=== PATIENT | male | born 1960 | race African-American/Black ===

== ENCOUNTER 2017-06-04 02:15 | Emergency (ER) | payer MEDICARE, MEDICAID ==
[2017-06-04 02:27] VITALS: BP 129/76
--- NOTE | 2017-06-04 02:54 | RADIOLOGY REPORT (SQ) ---
EXAM DESCRIPTION: RIBS LEFT W/PA CHEST COMPLETED DATE/TIME: 06/04/2017 2:41 am REASON FOR STUDY: fall with injury COMPARISON: Chest CT 2012 TECHNIQUE: Frontal view of the chest and additional views of the left ribs acquired. NUMBER OF VIEWS: Three view. LIMITATIONS: None. FINDINGS: FRONTAL CXR: No pneumothorax. No pleural effusion. No atelectasis or infiltrates. RIBS: Multiple old left rib fractures. Old left clavicle and scapular fractures. OTHER: No other significant finding. IMPRESSION: No pneumothorax. No acute fractures. Old posttraumatic changes of the left chest. COMMENT: SITE OF TRAUMA/COMPLAINT MARKED/STAMP COMPLETED: No TECHNICAL DOCUMENTATION: JOB ID: [id number] [employer]- All Rights Reserved
[2017-06-04] MEDS ORDERED: OXYCODONE-ACETAMINOPHEN 5-325 MG TABLET PO ONE (03:55)
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
== END 2017-06-04 04:21 | disposition home or self-care (01) ==
LOC: ER 02:15
DX: S29.9XXA Unspecified injury of thorax, initial encounter (principal); R07.81 Pleurodynia; W17.89XA Other fall from one level to another, initial encounter; F17.200 Nicotine dependence, unspecified, uncomplicated; I10 Essential (primary) hypertension
CPT/HCPCS: 99283; 71101; A9270

== ENCOUNTER 2019-07-07 07:41 | Emergency (ER) | payer MEDICARE, MEDICAID ==
[2019-07-07] MEDS ORDERED: OXYCODONE HCL IR 5 MG TABLET PO ONE (08:42)
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
--- NOTE | 2019-07-07 10:35 | RADIOLOGY REPORT (SQ) ---
EXAM DESCRIPTION: FEMUR LEFT COMPLETED DATE/TIME: 07/07/2019 10:13 am REASON FOR STUDY: left leg pain COMPARISON: CT pelvis same date NUMBER OF VIEWS: Two views. TECHNIQUE: Two radiographic images acquired of the left femur to include hip and knee in at least on e projection. LIMITATIONS: None. FINDINGS: MINERALIZATION: Normal. BONES: No acute fracture. No worrisome bone lesions. SOFT TISSUES: No obvious swelling or foreign body. OTHER: There is osteoarthritis at the left hip joint with edges [id number] appearance, subcortical cyst formation in the left acetabular roof. Moderate heterotopic ossification along the gluteal tend on attachments to the greater trochanter. Benign-appearing soft tissue calcification along the left mid thigh, possibly an old calcified lymph node IMPRESSION: No acute fracture. Left hip osteoarthritis TECHNICAL DOCUMENTATION: JOB ID: [id number] [employer]- All Rights Reserved Reading location - IP/workstation name: [email or web address]
--- NOTE | 2019-07-07 10:37 | RADIOLOGY REPORT (SQ) ---
EXAM DESCRIPTION: SHOULDER RIGHT 2 OR MORE VIEWS COMPLETED DATE/TIME: 07/07/2019 10:13 am REASON FOR STUDY: rt shoulder pain COMPARISON: CT chest 12/15/2012 NUMBER OF VIEWS: Three views. TECHNIQUE: Internal rotation, external rotation, and Y view images acquired of the right shoulder. LIMITATIONS: None. FINDINGS: MINERALIZATION: Normal. BONES: No acute fracture. No worrisome bone lesions. JOINTS: No glenohumeral dislocation. No acromioclavicular joint widening. There is bony spurring al claude the coracoclavicular articulation, with a pseudoarthrosis, similar compared to CT chest 3. VISUALIZED LUNGS AND RIBS: No pneumothorax. No rib fracture. SOFT TISSUES: No radiopaque foreign body. OTHER: No other significant finding. IMPRESSION: NO RADIOGRAPHIC EVIDENCE OF ACUTE INJURY. TECHNICAL DOCUMENTATION: JOB ID: [id number] [employer]- All Rights Reserved Reading location - IP/workstation name: [email or web address]
[2019-07-07 11:38] VITALS: BP 139/89
== END 2019-07-07 11:31 | disposition home or self-care (01) ==
LOC: ER 07:41
DX: M25.511 Pain in right shoulder (principal); M25.552 Pain in left hip; G89.29 Other chronic pain; M54.2 Cervicalgia; Y04.2XXA Assault by strike against or bumped into by another person, initial encounter; E78.00 Pure hypercholesterolemia, unspecified; I10 Essential (primary) hypertension
CPT/HCPCS: 73552; 73030; 72125; 72192; A9270; 99284

== ENCOUNTER 2019-10-01 02:55 | Emergency (ER) | payer MEDICARE, MEDICAID ==
[2019-10-01 04:46] LABS: ABSOLUTE EOSINOPHILS # (AUTO) 0.1 10^3/uL (0.0-0.6); ABSOLUTE LYMPHOCYTES (AUTO) 3.7 10^3/uL (0.5-4.7); ABSOLUTE MONOCYTES (AUTO) 0.7 10^3/uL (0.1-1.4); ABSOLUTE NEUT (AUTO) 2.4 10^3/uL (1.7-8.2); BASOPHILS % (AUTO) 0.1 % (0-2); EOSINOPHILS % (AUTO) 1.5 % (0-6); HEMATOCRIT 43.1 % (37.9-51.0); HEMOGLOBIN 15.1 g/dL (13.5-17.0); LYMPHOCYTES % (AUTO) 53.6 % (13-45); MEAN CORPUSCULAR HEMOGLOBIN 30.1 pg (27.0-33.4); MEAN CORPUSCULAR HGB CONC 35.2 g/dL (32.0-36.0); MEAN CORPUSCULAR VOLUME 86 fl (80-97); MONOCYTES % (AUTO) 10.2 % (3-13); PLATELET COUNT 201 10^3/uL (150-450); RED BLOOD COUNT 5.02 10^6/uL (4.35-5.55); RED CELL DISTRIBUTION WIDTH 13.7 % (11.5-14.0); SEGMENTED NEUTROPHILS % (AUTO) 34.6 % (42-78); TOTAL CELLS COUNTED % (AUTO) 100 %; WHITE BLOOD COUNT 6.9 10^3/uL (4.0-10.5)
[2019-10-01 05:16] LABS: ALKALINE PHOSPHATASE 79 U/L (38-126); ANION GAP 6 (5-19); ASPARTATE AMINO TRANSFERASE 35 U/L (17-59); BILIRUBIN,DIRECT 0.1 mg/dL (0.0-0.4); BILIRUBIN,TOTAL 0.6 mg/dL (0.2-1.3); BLOOD UREA NITROGEN 22 mg/dL (7-20); CALCIUM 9.4 mg/dL (8.4-10.2); CARBON DIOXIDE 31 mmol/L (22-30); CHLORIDE 103 mmol/L (98-107); CREATINE KINASE 113 U/L (55-170); GLUCOSE 105 mg/dL (75-110); POTASSIUM 3.5 mmol/L (3.6-5.0); TOTAL PROTEIN 7.1 g/dL (6.3-8.2)
[2019-10-01 05:28] LABS: CREATINE KINASE MB 0.99 ng/mL (<4.55)
[2019-10-01 05:29] LABS: TROPONIN I < 0.012 ng/mL
--- NOTE | 2019-10-01 06:03 | RADIOLOGY REPORT (SQ) ---
EXAM: XR Chest, 2 Views EXAM DATE/TIME: 10/01/2019 5:15 AM CLINICAL HISTORY: The patient is 59 years old and is Male; chest pain TECHNIQUE: Frontal and lateral views of the chest. COMPARISON: chest radiographs from 09/17/2015 FINDINGS: LUNGS: Unremarkable. No consolidation. PLEURAL SPACE: Unremarkable. No pneumothorax. HEART: No significant enlargement of the cardiac silhouette. MEDIASTINUM: Unremarkable. BONES/JOINTS: No acute osseous findings. IMPRESSION: No acute findings visualized in the chest.
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
[2019-10-01 10:30] VITALS: BP 98/57
--- NOTE | 2019-10-02 09:05 | EKG REPORT ---
SEVERITY:- ABNORMAL ECG - SINUS RHYTHM LEFT VENTRICULAR HYPERTROPHY NONSPECIFIC ST-T CHANGES- INFERIOR LEADS : Confirmed by: Min Catherine MD 02-Oct-2019 07:05:17
== END 2019-10-01 10:41 | disposition home or self-care (01) ==
LOC: ER 02:55
DX: R07.9 Chest pain, unspecified (principal); E78.00 Pure hypercholesterolemia, unspecified; I10 Essential (primary) hypertension; Z87.820 Personal history of traumatic brain injury
CPT/HCPCS: 36415; 71046; 80053; 82550; 82553; 84484; 85025; 93005; 93010; 99285

== ENCOUNTER → 2020-04-14 | Outpatient (CLI) | payer MEDICARE, MEDICAID ==
--- NOTE | 2020-04-14 14:52 | RADIOLOGY REPORT (SQ) ---
EXAM DESCRIPTION: CAROTID DOPPLER IMAGES COMPLETED DATE/TIME: 04/14/2020 2:44 pm REASON FOR STUDY: DIZZINESS R42 DIZZINESS AND GIDDINESS COMPARISON: None. TECHNIQUE: Grayscale ultrasound, Doppler velocity and spectra, and color Doppler images acquired of the extra-cranial carotid and vertebral arteries. Images stored on PACS. LIMITATIONS: None. FINDINGS: RIGHT CAROTID CCA Velocities: Within normal limits. ICA Velocities Peak systolic 0.67 m/s. End diastolic 0.33 m/s. Proximal ICA/CCA peak systolic ratio 0.92. There is minimal plaque in the right carotid bulb. LEFT CAROTID CCA Velocities: Within normal limits. ICA Velocities Peak systolic 0.77 m/s. End diastolic 0.30 m/s. Proximal ICA/CCA peak systolic ratio 0.92. Spectra normal. No significant plaque. VERTEBRAL ARTERIES: Antegrade flow. Normal waveforms. SUBCLAVIAN ARTERIES: No finding. OTHER: No other significant finding. IMPRESSION: NO HEMODYNAMICALLY SIGNIFICANT STENOSIS. COMMENT: Quality ID #[id number]: Velocity criteria are extrapolated from the diameter data as defined by t he Society of Radiologists in Ultrasound Consensus Conference. Radiology 2003: 229; 340-346. TECHNICAL DOCUMENTATION: JOB ID: [id number] 2010 [employer]- All Rights Reserved Reading location - IP/workstation name: [email or web address]
== END ==
LOC: RAD 11:41
PROVIDERS: ATTEND Physician Assistant
DX: R42 Dizziness and giddiness (principal)
CPT/HCPCS: 93880

== ENCOUNTER → 2020-06-09 | Outpatient (CLI) | payer MEDICARE, MEDICAID ==
[2020-06-09 11:26] LABS: ABSOLUTE LYMPHOCYTES (AUTO) 3.3 10^3/uL (0.5-4.7); ABSOLUTE MONOCYTES (AUTO) 0.6 10^3/uL (0.1-1.4); ABSOLUTE NEUT (AUTO) 2.4 10^3/uL (1.7-8.2); BASOPHILS % (AUTO) 0.3 % (0-2); EOSINOPHILS % (AUTO) 0.6 % (0-6); HEMATOCRIT 45.3 % (37.9-51.0); HEMOGLOBIN 15.7 g/dL (13.5-17.0); LYMPHOCYTES % (AUTO) 51.2 % (13-45); MEAN CORPUSCULAR HEMOGLOBIN 30.3 pg (27.0-33.4); MEAN CORPUSCULAR HGB CONC 34.8 g/dL (32.0-36.0); MEAN CORPUSCULAR VOLUME 87 fl (80-97); MONOCYTES % (AUTO) 9.4 % (3-13); PLATELET COUNT 212 10^3/uL (150-450); RED CELL DISTRIBUTION WIDTH 13.4 % (11.5-14.0); SEGMENTED NEUTROPHILS % (AUTO) 38.5 % (42-78); TOTAL CELLS COUNTED % (AUTO) 100 %; WHITE BLOOD COUNT 6.4 10^3/uL (4.0-10.5)
[2020-06-09 11:28] LABS: APPEARANCE,URINE CLEAR; BILIRUBIN,URINE NEGATIVE (NEGATIVE); COLOR,URINE YELLOW; GLUCOSE, URINE NEGATIVE (NEGATIVE); KETONES,URINE NEGATIVE (NEGATIVE); LEUKOCYTE ESTERASE,URINE NEGATIVE (NEGATIVE); NITRITE,URINE NEGATIVE (NEGATIVE); PROTEIN,URINE NEGATIVE (NEGATIVE); UROBILINOGEN,URINE NEGATIVE mg/dL (<2.0)
[2020-06-09 11:29] LABS: INTERNATIONAL RATION (INR) 0.98; PARTIAL THROMBOPLASTIN TIME 26.2 SEC (23.5-35.8); PROTHROMBIN TIME 13.1 SEC (11.4-15.4)
[2020-06-09 11:51] LABS: ALBUMIN 4.4 g/dL (3.5-5.0); ANION GAP 9 (5-19); BLOOD UREA NITROGEN 31 mg/dL (7-20); CARBON DIOXIDE 31 mmol/L (22-30); CHLORIDE 97 mmol/L (98-107); GLUCOSE 111 mg/dL (75-110); POTASSIUM 4.3 mmol/L (3.6-5.0)
[2020-06-09 11:52] LABS: C-REACTIVE PROTEIN < 5.0 mg/L (<10.0)
[2020-06-09 12:05] LABS: ERYTHROCYTE SEDIMENTATION RATE 6 mm/hr (0-20)
--- NOTE | 2020-06-09 12:43 | RADIOLOGY REPORT (SQ) ---
EXAM DESCRIPTION: CHEST PA/LATERAL IMAGES COMPLETED DATE/TIME: 06/09/2020 11:33 am REASON FOR STUDY: PRE-OP COMPARISON: 10/01/2019 EXAM PARAMETERS: NUMBER OF VIEWS: two views TECHNIQUE: Digital Frontal and Lateral radiographic views of the chest acquired. RADIATION DOSE: NA LIMITATIONS: none FINDINGS: LUNGS AND PLEURA: No opacities, masses or pneumothorax. No pleural effusion. MEDIASTINUM AND HILAR STRUCTURES: No masses or contour abnormalities. HEART AND VASCULAR STRUCTURES: Heart normal size. No evidence for failure. BONES: No acute findings. HARDWARE: None in the chest. OTHER: No other significant finding. IMPRESSION: NO SIGNIFICANT RADIOGRAPHIC FINDING IN THE CHEST. TECHNICAL DOCUMENTATION: JOB ID: [id number] 2010 [employer]- All Rights Reserved Reading location - IP/workstation name: [email or web address]
--- NOTE | 2020-06-09 16:28 | EKG REPORT ---
SEVERITY:- ABNORMAL ECG - SINUS BRADYCARDIA LEFT VENTRICULAR HYPERTROPHY ABNORMAL T, CONSIDER ISCHEMIA, INFERIOR LEADS : Confirmed by: Fito Ferreira MD 09-Jun-2020 16:27:19
== END ==
LOC: OD 09:50
PROVIDERS: ATTEND Orthopaedic Surgery
DX: Z01.810 Encounter for preprocedural cardiovascular examination (principal); Z01.811 Encounter for preprocedural respiratory examination; Z01.812 Encounter for preprocedural laboratory examination
CPT/HCPCS: 36415; 71046; 80048; 81001; 82040; 82306; 83036; 85025; 85610; 85652; 85730; 86140; 87070; 93005; 93010

== ENCOUNTER 2020-07-05 05:52 | Observation (INO) | payer MEDICARE, MEDICAID ==
[~2020-07-05 05:52] MED LIST: ACETAMINOPHEN 325 MG TABLET PO PRN; CEFAZOLIN 2 GM/D5W RTU 2 GM/50 ML RTUPB IV PRN; CELECOXIB 200 MG CAPSULE PO PRN; GABAPENTIN 100 MG CAPSULE PO PRN; LACTATED RINGERS 1000 ML IV PRN; LIDOCAINE 0.5% INJ-PF (5 MG/ML) 50 ML SDV SUBCUT PRN; ONDANSETRON 4 MG TAB.RAPDIS PO PRN; OXYCODONE HCL SR 10 MG TABLET PO PRN; PANTOPRAZOLE SODIUM 20 MG TABLET.DR PO PRN; SCOPOLAMINE HYDROBROMIDE 1.5 MG PATCH.TD72 TD PRN; TRANEXAMIC ACID INJ/PF 1,000 MG/10 ML SDV IV PRN; VANCOMYCIN HCL 1,000 MG in DEXTROSE 5%-WATER 250 ML IV PRN
[2020-07-05] MEDS ORDERED: ACETAMINOPHEN 325 MG TABLET ONE (06:35)
[2020-07-05] MEDS ORDERED: CELECOXIB 200 MG CAPSULE ONE (06:35)
[2020-07-05] MEDS ORDERED: GABAPENTIN 100 MG CAPSULE ONE (06:35)
[2020-07-05] MEDS ORDERED: PANTOPRAZOLE SODIUM 20 MG TABLET.DR PO ONE ×2 (06:35→09:25)
[2020-07-05] MEDS ORDERED: CEFAZOLIN 2 GM/D5W RTU 2 GM/50 ML RTUPB IV ONE (06:35)
[2020-07-05] MEDS ORDERED: SCOPOLAMINE HYDROBROMIDE 1.5 MG PATCH.TD72 ONE (06:35)
[2020-07-05] MEDS ORDERED: OXYCODONE HCL SR 10 MG TABLET PO ONE (06:35)
[2020-07-05] MEDS ORDERED: MIDAZOLAM 2 MG/2 ML INJ ONE (06:50)
[2020-07-05] MEDS ORDERED: PROPOFOL INJ 200 MG/20 ML VIAL IV ONE (06:50)
[2020-07-05] MEDS ORDERED: ONDANSETRON HCL INJ/PF 4 MG/2 ML SDV ONE (06:50)
[2020-07-05] MEDS ORDERED: FENTANYL CITRATE INJ/PF 100 MCG/2 ML AMPUL ONE ×2 (06:50→10:14)
[2020-07-05] MEDS ORDERED: EPHEDRINE SULFATE INJ 50 MG/1 ML AMPULE ONE (06:50)
[2020-07-05] MEDS ORDERED: DEXMEDETOMIDINE INJ 80 MCG/20 ML VIAL IV ONE (06:51)
[2020-07-05] MEDS ORDERED: LIDOCAINE 1% INJ-PF (10 MG/ML) 30 ML SDV ONE (07:13)
[2020-07-05] MEDS ORDERED: BUPIVACAINE HCL 0.25 % INJ/PF (2.5 MG/1 ML) 30 ML VIAL ONE (07:13)
[2020-07-05] MEDS ORDERED: VANCOMYCIN HCL INJ 1000 MG VIAL ONE (07:13)
[2020-07-05] MEDS ORDERED: KETOROLAC TROMETHAMINE INJ/PF 30 MG/1 ML SDV ONE ×2 (07:13→14:36)
[2020-07-05] MEDS ORDERED: MORPHINE SULFATE 10 MG/ML INJ IV PRN ×3 (08:25→09:25)
[2020-07-05] MEDS ORDERED: ONDANSETRON HCL INJ/PF 4 MG/2 ML SDV IV PRN (08:25)
[2020-07-05] MEDS ORDERED: MEPERIDINE HCL/PF INJ 25 MG/1 ML DISP.SYRIN IV PRN (08:25)
[2020-07-05] MEDS ORDERED: OXYCODONE-ACETAMINOPHEN 5-325 MG TABLET PO PRN ×2 (08:25)
[2020-07-05] MEDS ORDERED: PROMETHAZINE HCL INJ 25 MG/1 ML VIAL IV PRN ×2 (08:25)
[2020-07-05] MEDS ORDERED: DIPHENHYDRAMINE HCL 50 MG/ML VIAL IV PRN (08:25)
[2020-07-05] MEDS ORDERED: FENTANYL CITRATE INJ/PF 100 MCG/2 ML AMPUL IV PRN ×2 (08:25)
[2020-07-05] MEDS ORDERED: TRANEXAMIC ACID INJ/PF 1,000 MG/10 ML SDV ONE (09:24)
[2020-07-05] MEDS ORDERED: OXYCODONE HCL IR 5 MG TABLET PO PRN ×3 (09:25)
[2020-07-05] MEDS ORDERED: ZOLPIDEM TARTRATE 5 MG TABLET PO PRN (09:25)
[2020-07-05] MEDS ORDERED: DIPHENHYDRAMINE HCL 25 MG CAPSULE PO PRN (09:25)
[2020-07-05] MEDS ORDERED: ONDANSETRON 4 MG TAB.RAPDIS PO PRN (09:25)
[2020-07-05] MEDS ORDERED: TRANEXAMIC ACID INJ/PF 1,000 MG/10 ML SDV IV ONE (09:25)
[2020-07-05] MEDS ORDERED: TRAMADOL HCL 50 MG TABLET PO PRN (09:25)
[2020-07-05] MEDS ORDERED: DOCUSATE SODIUM 100 MG CAPSULE PO PRN (09:25)
[2020-07-05] MEDS ORDERED: BUPRENORPHINE TD SCH (09:30)
[2020-07-05] MEDS ORDERED: DEXAMETHASONE SOD PHOSPHATE INJ 4 MG/1 ML VIAL ONE (09:53)
[2020-07-05] MEDS: DEXAMETHASONE SOD PHOS INJ 10 MG/1 ML VIAL IV ONE ×2 (09:54→15:50)
[2020-07-05] MEDS ORDERED: FINASTERIDE 5 MG TABLET PO SCH (10:00)
[2020-07-05] MEDS ORDERED: (PENDING PHARMACY ID) (Metoprolol Succinate [Metoprolol Succinate] 100 MG Tab.Er.24h) PO SCH (10:00)
[2020-07-05] MEDS ORDERED: DIAZEPAM 10 MG PO SCH (10:00)
--- NOTE | 2020-07-05 10:08 | RADIOLOGY REPORT (SQ) ---
EXAM DESCRIPTION: HIP LEFT AP/LATERAL IMAGES COMPLETED DATE/TIME: 07/05/2020 9:55 am REASON FOR STUDY: POST OP LEFT M16.12 UNILATERAL PRIMARY OSTEOARTHRITIS, LEFT HIP COMPARISON: CT of the pelvis without contrast from 07/07/2019. NUMBER OF VIEWS: Two views. TECHNIQUE: An AP view of the pelvis and a lateral frogleg view of the left hip were obtained. LIMITATIONS: None. FINDINGS: MINERALIZATION: Normal. LEFT HIP: Status post THR; the prosthesis is in anatomic alignment. There is no periprosthetic fract ure. RIGHT HIP: Status post THR; the prosthesis is in anatomic alignment. There is no periprosthetic frac ture. The heterotopic ossification along the superolateral margin of the hardware is unchanged. PUBIS AND ISCHIUM: The ilioischial and iliopectineal lines are intact. There is no diastasis of the pubic symphysis. PELVIS: No fracture. SACRUM: Intact. LOWER LUMBAR SPINE: No acute gross abnormality. SOFT TISSUES: Subcutaneous emphysema around the left THR hardware. OTHER: No other findings. IMPRESSION: Uncomplicated left THR hardware with expected immediate postoperative findings. TECHNICAL DOCUMENTATION: JOB ID: [id number] 2010 [employer]- All Rights Reserved Reading location - IP/workstation name: [email or web address]
[2020-07-05] MEDS: FENTANYL CITRATE INJ/PF 100 MCG/2 ML AMPUL IV PRN ×2 (10:15→10:20)
--- NOTE | 2020-07-05 11:51 | Operative Report ---
Operative Report DATE OF SURGERY: 07/05/20 PREOPERATIVE DIAGNOSIS: Severe left hip primary osteoarthritis POSTOPERATIVE DIAGNOSIS: Severe left hip primary osteoarthritis OPERATION: Left total hip arthroplasty SURGEON: IVIS AIKEN JR ANESTHESIA: Spinal COMPLICATIONS: None ESTIMATED BLOOD LOSS: 200 cc PROCEDURE: Implants: [employer] size 11 femoral stem with standard offset, a G7 size 50 cup, and a standard liner, a standard neck length 36 mm ceramic head OPERATIVE PROCEDURE: Patient was brought to the operating room on and underwent spinal anesthesia. 2 grams of Ancef and 1 g of vancomycin was given. After proper anesthesia was obtained, patient was positioned, padded, prepped, and draped in the usual sterile fashion on the operating room table. Appropriate time out was performed. An anterior approach to the hip was undertaken with meticulous hemostasis through the deep interval. A capsulectomy was performed followed by exposure of the femoral neck. The femoral neck was cut in line with the femoral broach and the femoral head was removed. The acetabulum was then exposed with three retractors in an atraumatic fashion. Soft tissue and osteophytes were removed. Medialization reaming was performed followed by reaming of the acetabulum. Wound was irrigated with dilute betadyne solution and the 50 mm acetabulum was impacted into correct position and stability checked by manipulating the impaction handle which rocked the pelvis. A standard liner was impacted into the shell with good stability. Potential impin ging osteophytes were removed. Attention was then directed toward the femur, which was exposed with two retractors in an atraumatic fashion. A bone hook was placed to carefully perform releases along the superior capsule until the femur was safely delivered through the wound. A box office agent was utilized followed by lateralization rasping and then broaching up to a stable, filled proximal femur. With a standard offset neck and a 0 neck length 36 mm head, stability was good in flexion and extension with near equal leg lengths. The final size 11 stem was impacted into a copiously irrigated femoral canal. The final size 36, 0 neck length head was impacted on a clean dry femoral taper. The hip was irrigated and reduced, further irrigation with antibiotic solution, betadine solution, then antibiotic solution. Bleeders were coagulated with bovie cautery. The fascia was then closed with number 2 barbed PDS; the subcutaneous tissue closed with 2-0 monocryl and then a running 3-0 monocryl subcuticular. A silver dressing was then applied. All needle sponge and instrument counts were correct. Patient was awakened from sedation anesthesia and taken to recovery room in stable condition.
[2020-07-05] MEDS ORDERED: ACETAMINOPHEN 325 MG TABLET PO SCH (12:00)
[2020-07-05] MEDS ORDERED: OXYCODONE HCL IR 5 MG TABLET ONE (13:07)
[2020-07-05] MEDS: OXYCODONE HCL IR 5 MG TABLET PO PRN ×2 (13:10→18:31)
[2020-07-05] MEDS: KETOROLAC TROMETHAMINE INJ/PF 30 MG/1 ML SDV IV SCH ×3 (14:00→22:20)
[2020-07-05] MEDS ORDERED: CEFAZOLIN 2 GM/D5W RTU 2 GM/50 ML RTUPB IV SCH (14:00)
--- NOTE | 2020-07-05 15:49 | RADIOLOGY REPORT (SQ) ---
EXAM DESCRIPTION: NO CHG FLUORO; HIP IN OPERATING RM IMAGES COMPLETED DATE/TIME: 07/05/2020 3:14 pm; 07/05/2020 3:15 pm REASON FOR STUDY: LEFT HIP TOTAL ARTHROPLASTY ASSISTED WITH FLUORO IN OR COMPARISON: None. FLUOROSCOPY TIME: No recordable fluoro time. 1 Images saved to PACS LIMITATIONS: None. PROCEDURE: Left hip arthroplasty. FINDINGS: Image from fluoro documents the procedure in progress. IMPRESSION: Left hip arthroplasty. Refer to operative note for further information. COMMENT: PQRS 6045F: Fluoroscopy time of the procedure is documented in the report. TECHNICAL DOCUMENTATION: JOB ID: [id number] 2010 [employer]- All Rights Reserved Reading location - IP/workstation name: [email or web address]
--- NOTE | 2020-07-05 15:49 | RADIOLOGY REPORT (SQ) ---
EXAM DESCRIPTION: NO CHG FLUORO; HIP IN OPERATING RM IMAGES COMPLETED DATE/TIME: 07/05/2020 3:14 pm; 07/05/2020 3:15 pm REASON FOR STUDY: LEFT HIP TOTAL ARTHROPLASTY ASSISTED WITH FLUORO IN OR COMPARISON: None. FLUOROSCOPY TIME: No recordable fluoro time. 1 Images saved to PACS LIMITATIONS: None. PROCEDURE: Left hip arthroplasty. FINDINGS: Image from fluoro documents the procedure in progress. IMPRESSION: Left hip arthroplasty. Refer to operative note for further information. COMMENT: PQRS 6045F: Fluoroscopy time of the procedure is documented in the report. TECHNICAL DOCUMENTATION: JOB ID: [id number] 2010 [email or web address]- All Rights Reserved Reading location - IP/workstation name: [email or web address]
[2020-07-05] MEDS: OXYCODONE HCL SR 10 MG TABLET PO SCH ×2 (16:02→22:09)
[2020-07-05] MEDS: CYCLOBENZAPRINE HCL 10 MG TABLET PO SCH ×2 (16:02→22:07)
[2020-07-05] MEDS: DIAZEPAM 5 MG TABLET PO SCH ×2 (16:02→22:09)
[2020-07-05] MEDS: NORMAL SALINE 1000 ML 1,000 ML IV ONE ×2 (16:03→16:23)
[2020-07-05] MEDS: CEFAZOLIN SODIUM 2 GM in DEXTROSE 5%-WATER 100 ML IV SCH ×2 (16:03→22:10)
[2020-07-05] MEDS ORDERED: ATORVASTATIN CALCIUM 10 MG TABLET PO SCH (22:00)
[2020-07-05] MEDS: ACETAMINOPHEN 325 MG TABLET PO SCH (22:07)
[2020-07-05] MEDS: GABAPENTIN 100 MG CAPSULE PO SCH (22:09)
[2020-07-06] MEDS: DIAZEPAM 5 MG TABLET PO SCH ×2 (05:37→13:05)
[2020-07-06] MEDS: CYCLOBENZAPRINE HCL 10 MG TABLET PO SCH ×2 (05:37→13:05)
[2020-07-06] MEDS: KETOROLAC TROMETHAMINE INJ/PF 30 MG/1 ML SDV IV SCH (05:38)
[2020-07-06] MEDS: OXYCODONE HCL SR 10 MG TABLET PO SCH ×2 (05:38→13:05)
[2020-07-06] MEDS: ACETAMINOPHEN 325 MG TABLET PO SCH ×3 (05:38→15:19)
[2020-07-06] MEDS: GABAPENTIN 100 MG CAPSULE PO SCH (09:17)
[2020-07-06] MEDS ORDERED: HYDROCHLOROTHIAZIDE 25 MG TABLET PO SCH (10:00)
[2020-07-06] MEDS ORDERED: METOPROLOL SUCCINATE 50 MG TAB.SR.24H PO SCH (10:00)
[2020-07-06] MEDS ORDERED: ASPIRIN 325 MG TABLET PO SCH (10:00)
[2020-07-06] MEDS ORDERED: LISINOPRIL 10 MG TABLET PO SCH (10:00)
[2020-07-06] MEDS ORDERED: FINASTERIDE 5 MG TABLET PO SCH (10:00)
[2020-07-06] MEDS ORDERED: POLYETHYLENE GLYCOL 3350 POWDER 17 GM/1 PACKET PO SCH (10:00)
[2020-07-06 12:09] VITALS: BP 107/68
--- NOTE | 2020-07-06 13:12 | Discharge Summary ---
Discharge Summary (SDC) - Discharge Final Diagnosis: Severe primary left hip osteoarthritis Date of Surgery: 07/05/20 Discharge Date: 07/06/20 Condition: Stable Treatment or Instructions: Full details of postoperative instructions have been provided to the patient in the clinic. Additionally they should maintain their bandage in place for 10 days, and then changed to a dry dressing. They can take showers with this occlusive dressing but any further dressing should also be occlusive. No showers with the wound unprotected until cleared by me in the clinic. If the bandage falls off early or become saturated they can change as needed to another occlusive dressing. Follow-up with Dr. Jeremy Aiken, orthopedic surgeon at [facility] for surgery, in 10 days. Call for an appointment. . [address], [place] [address] Prescriptions were provided to the patient preoperatively for postoperative pain control. As well as prescription for aspirin for DVT prophylaxis. Referrals: JEREMY AIKEN JR, DO [ACTIVE PROVISIONAL STAFF] - 07/20/20 10:20 am Discharge Diet: As Tolerated Respiratory Treatments at Home: Deep Breathing/Coughing Discharge Activity: Activity As Tolerated, No Driving, Keep Legs Elevated, Slowly Increase Activity, No tub bath, Walk Frequently Home Care Assistance: Home Health Activities Provided by Home Health Agency: Alf, Physical Therapy Adaptive Devices on Discharge: Rolling Walker, Bedside Commode Report the Following to Your Physician Immediately: Shortness of Breath, Fever over 101 Degrees, Unusual Bleeding, Drainage-Yellow
--- NOTE | 2020-07-06 13:14 | PDOC PROGRESS REPORT ---
Subjective Date:: 07/06/20 Subjective:: The patient is doing well this AM. Pain is present but not out of proportion an d well controlled on their current medications. There are no new symptoms or overnight events. Overall they are felling well without complaints. They deny chest pain, shortness of breath or motor or sensory loss. Reason For Visit: LEFT HIP PRIMARY OSTEOARTHRITIS Physical Exam Vital Signs: Temp Pulse Resp BP Pulse Ox 97.3 F 70 17 107/68 100 07/06/20 12:09 07/06/20 12:09 07/06/20 12:09 07/06/20 12:09 07/06/20 12:09 Intake & Output 07/05/20 07/06/20 07/07/20 06:59 06:59 06:59 Intake Total 0 3160 550 Output Total 900 175 Balance 0 2260 375 Weight 68.1 kg Physical Exam: No acute distress, alert and orient x3 Left lower extremity -Pulses 2+ distally -Compartments soft -Sensation grossly intact to L3-4-5 S1 -Motor grossly intact to EHL TA gastroc and quad Dressing clean dry and intact Results Laboratory Results: 07/05/20 06:24 Nasophary (Mrsa Only) MRSA Culture - Final NO MRSA RECOVERED Impressions: Fluoroscopy 07/05/20 00:00 IMPRESSION: Left hip arthroplasty. Refer to operative note for further information. Hip X-Ray 07/05/20 00:00 IMPRESSION: Left hip arthroplasty. Refer to operative note for further information. Assessment & Plan - Diagnosis (1) History of total left hip replacement Is this a current diagnosis for this admission?: Yes Plan: - 2 doses of Ancef postoperatively q 8 hours to complete 24 hours perioperatively -Weightbearing as tolerated, no precautions, encourage out of bed QUINN for ADL training - PT/OT -aspirin 325 daily for DVT prophylaxis for 6 weeks -multimodal pain management to avoid excessive narcotics, including gabapentin, tramadol, Toradol, acetaminophen. -Dressing should not be removed for 7 to 10 days until seen in the office -May shower with the dressing intact, if it starts to come off she should not get the incision wet. -Follow-up with Dr. Jeremy Parra, orthopedic surgeon at [facility] for surgery, in 10 days. Call for an appointment. . [address], [place] [address] - Time Time Spent with patient: Less than 15 minutes
[2020-07-07] MEDS ORDERED: CELECOXIB 200 MG CAPSULE PO SCH (10:00)
== END 2020-07-06 16:00 | disposition home health service (06) ==
LOC: OROUT 05:52 → 4S 09:25
PROVIDERS: ADMIT Orthopaedic Surgery; ATTEND Orthopaedic Surgery
DX: M16.12 Unilateral primary osteoarthritis, left hip (principal); M25.552 Pain in left hip; M54.32 Sciatica, left side; Z87.820 Personal history of traumatic brain injury; E78.5 Hyperlipidemia, unspecified; I10 Essential (primary) hypertension; Z20.828 Contact with and (suspected) exposure to other viral communicable diseases
CPT/HCPCS: 86900; 86901; 36415; 86850; 87070; 73502; 73501; 97530 ×3; 97110; 97116 ×2; 97162; 97166; 01214; 27130; G0378 ×2; C1776 ×2; U0003; A9270 ×21; J2250; J0690 ×2; J1100; J3490 ×6; J3010; J1885 ×2; J2405; J7060 ×2; J7030; J2704; J3370; C9803; 87635